=== PATIENT | male | born 1985 | race Caucasian/White ===

== ENCOUNTER → 2021-01-25 12:29 | Outpatient (ROUT) | payer OTHER, SELFPAY ==
[2021-01-25 13:15] LABS: COVID19 -Nasal RAPID Negative (Negative)
== END ==
PROVIDERS: Visit Provider Family Medicine
DX: R43.0 Anosmia (principal); R49.1 Aphonia; R68.89 Other general symptoms and signs; Z20.822 Contact with and (suspected) exposure to COVID-19
CPT/HCPCS: 87635

== ENCOUNTER → 2021-07-02 12:09 | Outpatient (ROUT) | payer OTHER, SELFPAY ==
[2021-07-02 14:31] LABS: COVID19 -Nasal RAPID POSITIVE (Negative)
== END ==
PROVIDERS: Visit Provider Family Medicine
DX: U07.1 COVID-19 (principal)
CPT/HCPCS: 87635

== ENCOUNTER → 2023-08-04 12:41 | Outpatient (CLI) | payer OTHER, SELFPAY ==
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
== END ==
PROVIDERS: Referring Provider Family Medicine; Visit Provider Family Medicine
DX: S16.1XXA Strain of muscle, fascia and tendon at neck level, initial encounter (principal); S39.012A Strain of muscle, fascia and tendon of lower back, initial encounter; M51.37 Other intervertebral disc degeneration, lumbosacral region; V89.2XXA Person injured in unspecified motor-vehicle accident, traffic, initial encounter
CPT/HCPCS: 72040; 72100